=== PATIENT | male | born 1965 | race Two or more races ===

== ENCOUNTER 2019-08-19 18:10 | Emergency (ER) | payer SELFPAY ==
[~2019-08-19] VITALS: Ht 160 cm; Wt 80.0 kg
[2019-08-19 18:12] VITALS: BP 150/90
== END 2019-08-19 18:28 | disposition left against medical advice (07) ==
LOC: ER 18:10
DX: Z53.21 Procedure and treatment not carried out due to patient leaving prior to being seen by health care provider (principal)

== ENCOUNTER 2019-10-04 11:49 | Emergency (ER) | payer SELFPAY ==
[~2019-10-04] VITALS: Ht 172.7 cm; Wt 64.0 kg
[2019-10-04 11:54] VITALS: BP 112/60
== END 2019-10-04 18:34 | disposition left against medical advice (07) ==
LOC: ER 11:55
DX: M79.10 Myalgia, unspecified site (principal); Z53.21 Procedure and treatment not carried out due to patient leaving prior to being seen by health care provider